=== PATIENT | male | born 1995 | race American Indian/Alaskan Native ===

== ENCOUNTER 2017-10-12 00:12 | Emergency (ER) | payer OTHER ==
[2017-10-12 01:27] VITALS: BP 141/84
[2017-10-12] MEDS ORDERED: PEPCID IV ONE (03:06)
[2017-10-12] MEDS ORDERED: DECADRON IV ONE (03:06)
--- NOTE | 2017-10-12 03:06 | Emergency Department Report ---
HPI - General Chief Complaint: Allergic Reaction Time Seen by Provider: 10/12/17 02:51 - HPI HPI: 22-year-old male comes in with right forearm red itchy and painful rash status post wasp bites on 10/10/2017. Patient denies any shortness of breathing and difficulty swallowing. Patient was able to attend work today. Patient reports that he is allergic to penicillin and he took 50 mg of Benadryl prior to arrival. She reports no past medical history currently takes no medications on a daily basis. ED Past Medical Hx - Past Medical History Previous Medical History?: No - Surgical History Past Surgical History?: No - Social History Smoking Status: Current Every Day Smoker Substance Use Type: None - Medications Home Medications: Home Medications Medication Instructions Recorded Confirmed Last Taken Type Sulfamethoxazole/Trimethoprim 1 each PO BID 7 Days #14 tablet 10/12/17 Unknown Rx [Bactrim DS TAB] predniSONE [Deltasone] 20 mg PO QDAY #4 tab 10/12/17 Unknown Rx ED Review of Systems ROS: Stated complaint: REACTION TO BEE STING Other details as noted in HPI Musculoskeletal: arthralgia (right forearm) Skin: change in color (redness and swelling ) Physical Exam - Physical Exam Vital Signs: Vital Signs 10/12/17 01:21 Temperature 98.7 F Pulse Rate 88 Respiratory 16 Rate Blood Pressure 141/84 O2 Sat by Pulse 99 Oximetry Physical Exam: GENERAL APPEARANCE: Well developed, well nourished, in no acute distress. SKIN: Inspection of the skin reveals right forearm edematous, erythematous tenderness to palpate MUSCULOSKELETAL: Gait was normal. right forearm edematous, erythematous tenderness to palpate EXTREMITIES: No cyanosis, clubbing or edema. NEUROLOGIC: Alert and oriented x 3. Normal affect. Gait was normal. ED Course Vital Signs 10/12/17 01:21 Temperature 98.7 F Pulse Rate 88 Respiratory 16 Rate Blood Pressure 141/84 O2 Sat by Pulse 99 Oximetry - Reevaluation(s) Reevaluation #1: 10/12/17 04:21 Patient reports he feels that the swelling has starting to improve. Pain has started to decrease. ED Medical Decision Making - Medical Decision Making Patient has been evaluated by this provider fast track. Dexamethasone 4 mg IV, Pepcid 20 mg IV, Bactrim double strength by mouth, ibuprofen 800 mg by mouth. Patient reports symptoms have improved. Discussed patient to follow up with the primary care provider if symptoms persist or gets worse Critical care attestation.: If time is entered above; I have spent that time in minutes in the direct care of this critically ill patient, excluding procedure time. ED Disposition Clinical Impression: Insect bite Qualifiers: Encounter type: initial encounter Qualified Code(s): W57.XXXA - Bitten or stung by nonvenomous insect and other nonvenomous arthropods, initial encounter Disposition: TO HOME OR SELFCARE Is pt being admited?: No Does the pt Need Aspirin: No Condition: Stable Instructions: Insect Bite or Sting (ED) Additional Instructions: Take medication as prescribed. Follow-up in emergency room or primary care if symptoms persist or gets worse. Prescriptions: predniSONE [Deltasone] 20 mg PO QDAY #4 tab Sulfamethoxazole/Trimethoprim [Bactrim DS TAB] 1 each PO BID 7 Days #14 tablet Referrals: PRIMARY CARE, [Primary Care Provider] - 3-5 Days [facility] [Provider Group] - 3-5 Days Forms: Work/School Release Form(ED), Accompanied Note
[2017-10-12] MEDS ORDERED: BACTRIM DS PO ONE (03:07)
[2017-10-12] MEDS ORDERED: MOTRIN PO ONE (03:09)
== END 2017-10-12 04:30 | disposition home or self-care (01) ==
LOC: ED 00:12
DX: R21 Rash and other nonspecific skin eruption (principal); F17.200 Nicotine dependence, unspecified, uncomplicated; W57.XXXA Bitten or stung by nonvenomous insect and other nonvenomous arthropods, initial encounter; Y93.89 Activity, other specified; Y99.8 Other external cause status; Y92.89 Other specified places as the place of occurrence of the external cause
CPT/HCPCS: 96374; 96375; 99283; J1100